=== PATIENT | female | born 1960 | race Caucasian/White ===

== ENCOUNTER 2016-10-17 10:02 | Emergency (ER) | payer OTHER ==
[~2016-10-17] VITALS: Ht 152.4 cm; Wt 88.7 kg
[2016-10-17 11:51] LABS: CALCIUM 8.9 mg/dL (8.5-10.1); CARBON DIOXIDE 26.4 mmol/L (21-32); CHLORIDE SERUM 102 mmol/L (98-107); CREATININE SERUM 0.8 mg/dL (0.6-1.0); GFR1 > 60 mL/min; GLUCOSE SERUM 94 mg/dL (74-106); POTASSIUM SERUM 3.9 mmol/L (3.5-5.1); SODIUM SERUM 139 mmol/L (136-145)
[2016-10-17 13:27] VITALS: BP 132/89
== END 2016-10-17 12:55 | disposition home or self-care (01) ==
LOC: EDBD 10:02 → ED 10:02
PROVIDERS: Emergency Medicine
DX: M72.2 Plantar fascial fibromatosis (principal); M79.604 Pain in right leg; M79.605 Pain in left leg
CPT/HCPCS: 36415; J1885

== ENCOUNTER 2017-04-27 22:56 | Emergency (ER) | payer OTHER ==
[~2017-04-27] VITALS: Ht 157.5 cm; Wt 87.1 kg
[2017-04-27 23:05] VITALS: Ht 157.5 cm; Wt 87.1 kg
[2017-04-28 00:49] VITALS: BP 114/65
== END 2017-04-28 00:35 | disposition home or self-care (01) ==
LOC: ED 22:56
DX: M79.601 Pain in right arm (principal); M54.9 Dorsalgia, unspecified; R05 Cough
CPT/HCPCS: J1885